=== PATIENT | female | born 1955 | race Caucasian/White ===

== ENCOUNTER 2023-10-01 12:01 | Emergency (ER) | payer OTHER ==
[~2023-10-01] VITALS: Ht 160 cm; Wt 63.5 kg
[2023-10-01] MEDS ORDERED: SYNTHROID50 MCG PO (12:05)
[2023-10-01] MEDS ORDERED: SERTRALINE20 MG/1 ML PO (12:05)
[2023-10-01] MEDS ORDERED: FAMOTIDINE/PF 20 MG in 0.9 % SODIUM CHLORIDE 8 ML IV PUSH STA (12:13)
[2023-10-01] MEDS ORDERED: SODIUM BICARBONATE 50 MEQ in 0.9 % SODIUM CHLORIDE 1,000 ML IV SCH (12:15)
[2023-10-01] MEDS ORDERED: ONDANSETRON HCL 2 MG/ML VIAL IV ONE (12:15)
[2023-10-01] MEDS ORDERED: KETOROLAC TROMETHAMINE 30 MG VIAL IV ONE (12:15)
[2023-10-01] MEDS ORDERED: 0.9 % SODIUM CHLORIDE 1,000 ML IV SCH (12:30)
[2023-10-01 13:00] LABS: HEMATOCRIT 42.8 % (36.0-45.00); HEMOGLOBIN 14.7 g/dL (12.0-15.00); MEAN CORPUSCULAR HGB CONC 34.4 g/dl (32.0-36.0); PLATELET COUNT 229 K/uL (150-450); RED BLOOD COUNT 4.75 M/uL (4.00-6.00); RED CELL DISTRIBUTION WIDTH 13.9 % (11.5-14.5)
[2023-10-01 14:25] LABS: ALBUMIN 4.1 gm/dL (3.4-5.0); BILIRUBIN TOTAL 0.63 mg/dL (0.3-1.2); CALCIUM 9.6 mg/dL (8.5-10.1); CREATININE SERUM 0.89 mg/dL (0.55-1.02); GFR 62.89; POTASSIUM 4.23 mEq/L (3.5-5.1); TOTAL PROTEIN 7.1 gm/dL (6.4-8.2)
[2023-10-01] MEDS ORDERED: ONDANSETRON ODT8 MG PO (15:31)
[2023-10-01] MEDS ORDERED: PEPCID AC20 MG PO (15:31)
== END 2023-10-01 16:57 | disposition home or self-care (01) ==
LOC: ER 12:01
PROVIDERS: General Practice
DX: K52.9 Noninfective gastroenteritis and colitis, unspecified (principal); R11.10 Vomiting, unspecified; E03.8 Other specified hypothyroidism; Z88.0 Allergy status to penicillin